=== PATIENT | male | born 1985 | race Hispanic/Latino ===

== ENCOUNTER 2022-11-16 12:25 | Emergency (ER) | payer SELFPAY ==
[~2022-11-16] VITALS: Ht 160 cm; Wt 72.5 kg
[~2022-11-16 12:25] MED LIST: BENADRYL 50MG C50 MG OR; DENIES HOME MEDS; MEDDOSEPAK OR; TAGAMET300 MG OR
[2022-11-16] MEDS ORDERED: CLINDAMYCIN HY150 MG PO (13:51)
[2022-11-16] MEDS ORDERED: NAPROXEN500 MG PO (13:53)
[2022-11-16] MEDS ORDERED: HYDROCO/APAP1 TA9 PO (13:53)
[2022-11-16 14:24] VITALS: BP 105/80
== END 2022-11-16 14:24 | disposition home or self-care (01) | DRG 159 ==
LOC: ED 12:25
DX: K02.9 Dental caries, unspecified (principal); F17.210 Nicotine dependence, cigarettes, uncomplicated

== ENCOUNTER 2022-11-28 13:13 | Emergency (ER) | payer SELFPAY ==
[~2022-11-28] VITALS: Ht 160 cm; Wt 74.8 kg
[~2022-11-28 13:13] MED LIST changes: +CLINDAMYCIN HY150 MG PO; +HYDROCO/APAP1 TA9 PO; +NAPROXEN500 MG PO
[2022-11-28 13:36] VITALS: BP 122/88
[2022-11-28 14:00] VITALS: BP 113/74
[2022-11-28 14:03] LABS: BASO% 0.7 % (0-3); EOS% 0.9 % (0-8); HEMATOCRIT 48.4 % (39.0-50.0); HEMOGLOBIN 16.1 g/dl (14.0-18.0); IMMATURE GRANULOCYTES 0.2 % (0.0-5.0); LYMPH% 15.3 % (15-41); MEAN CORPUSCULAR HGB CONC 33.3 g/dL CAL (32.0-36.0); MONO% 5.5 % (2-13); NEUT# 7.72 thou/uL (1.82-7.42); NEUT% 77.4 % (42-76); RED BLOOD COUNT 4.88 mill/uL (4.70-6.10); RED CELL DISTRI WIDTH 13.1 % (11.5-15.5)
[2022-11-28 14:05] LABS: MEAN CELL VOLUME 99.2 fL CALC (80.0-100.0)
[2022-11-28 14:16] LABS: ALBUMIN 4.4 g/dL (3.2-5.0); ALKALINE PHOSPHATASE 54 u/l (38-126); ANION GAP 8 (6-22 (CALC)); BUN 7 mg/dL (9-20); BUN/CREATININE RATIO 11 (12-20 (CALC)); CARBON DIOXIDE 27 mmol/l (22-30); CHLORIDE 105 mmol/l (95-108); CREATININE 0.6 mg/dL (0.7-1.3); GFR FOR AFR.AMER. > 60 ML/MIN (>=60 (CALC)); GFR OTHER RACES > 60 ML/MIN (>=60 (CALC)); POTASSIUM 3.8 mmol/l (3.5-5.1); SGOT/AST 28 u/l (17-59); SODIUM 136 mmol/l (137-146); TOTAL PROTEIN 7.7 g/dL (6.3-8.2)
[2022-11-28 14:18] LABS: BILIRUBIN, TOTAL 0.3 mg/dL (0.2-1.3)
[2022-11-28] MEDS ORDERED: METRONIDAZOLE500 MG PO (14:20)
[2022-11-28 14:30] VITALS: BP 123/82
[2022-11-28 15:00] VITALS: BP 118/85
[2022-11-28 15:02] VITALS: BP 118/85
== END 2022-11-28 15:19 | disposition home or self-care (01) | DRG 392 ==
LOC: ED 13:13
PROVIDERS: Family Medicine
DX: R19.7 Diarrhea, unspecified (principal); F17.200 Nicotine dependence, unspecified, uncomplicated

== ENCOUNTER 2024-05-02 09:57 | Emergency (ER) | payer SELFPAY ==
[~2024-05-02] VITALS: Ht 160 cm; Wt 58.9 kg
[~2024-05-02 09:57] MED LIST changes: +METRONIDAZOLE500 MG PO
[2024-05-02] MEDS ORDERED: CEPHALEXIN500 M1 PO (11:46)
[2024-05-02] MEDS ORDERED: BACTRIM DS1 TAB PO (11:46)
[2024-05-02] MEDS ORDERED: Diph, Acellular Pertussis, Tet 0.5 ML/VIAL (Tdap) SDV IM ONE (11:50)
[2024-05-02 13:02] VITALS: BP 129/88
== END 2024-05-02 13:09 | disposition home or self-care (01) | DRG 605 ==
LOC: ED 09:57
PROC: 0HCDXZZ Extirpation of Matter from Right Lower Arm Skin, External Approach (ICD-10-PCS; principal; 2024-05-02)
DX: S50.851A Superficial foreign body of right forearm, initial encounter (principal); W45.8XXA Other foreign body or object entering through skin, initial encounter; Y99.0 Civilian activity done for income or pay

== ENCOUNTER 2024-06-04 17:14 | Emergency (ER) | payer SELFPAY ==
[~2024-06-04] VITALS: Ht 160 cm; Wt 72.7 kg
[~2024-06-04 17:14] MED LIST changes: +BACTRIM DS1 TAB PO; +CEPHALEXIN500 M1 PO
[2024-06-04 17:18] VITALS: BP 144/89
[2024-06-04 17:30] VITALS: BP 137/92
[2024-06-04 17:45] VITALS: BP 124/83
[2024-06-04 18:00] VITALS: BP 122/79
[2024-06-04 18:15] VITALS: BP 121/83
[2024-06-04 18:16] LABS: BASO% 0.5 % (0-3); EOS% 2.1 % (0-8); HEMATOCRIT 44.5 % (39.0-50.0); HEMOGLOBIN 14.9 g/dl (14.0-18.0); IMMATURE GRANULOCYTES 0.2 % (0.0-5.0); LYMPH% 20.4 % (15-41); MEAN CELL VOLUME 102.1 fL CALC (80.0-100.0); MEAN CORPUSCULAR HGB 34.2 pG CALC (26.0-32.0); MEAN CORPUSCULAR HGB CONC 33.5 g/dL CAL (32.0-36.0); MONO% 4.9 % (2-13); NEUT# 6.37 thou/uL (1.82-7.42); NEUT% 71.9 % (42-76); RED BLOOD COUNT 4.36 mill/uL (4.70-6.10); RED CELL DISTRI WIDTH 12.5 % (11.5-15.5)
[2024-06-04 18:30] LABS: ALBUMIN 4.3 g/dL (3.2-5.0); BILIRUBIN, TOTAL 0.5 mg/dL (0.2-1.3); CREATININE 0.7 mg/dL (0.7-1.3); POTASSIUM 3.2 mmol/l (3.5-5.1); TOTAL PROTEIN 7.3 g/dL (6.3-8.2)
[2024-06-04] MEDS ORDERED: IBUPROFEN 800 MG/TAB PO ONE (19:45)
[2024-06-04] MEDS ORDERED: POTASSIUM CHLORIDE 20 MEQ/TAB PO ONE (19:45)
[2024-06-04 20:10] VITALS: BP 140/90
== END 2024-06-04 20:10 | disposition home or self-care (01) | DRG 605 ==
LOC: ED 17:14
PROVIDERS: Nurse Practitioner Family
DX: S00.81XA Abrasion of other part of head, initial encounter (principal); M54.2 Cervicalgia; R68.84 Jaw pain; F17.200 Nicotine dependence, unspecified, uncomplicated; Y04.8XXA Assault by other bodily force, initial encounter